=== PATIENT | female | born 1965 | race Caucasian/White ===

== ENCOUNTER 2018-05-24 11:55 | Emergency (ER) | payer BC ==
[2018-05-24 12:28] VITALS: BP 134/62
--- NOTE | 2018-05-24 12:48 | ED ---
Throat Pain/Nasal Congestion - HPI Summary HPI Summary: 53 yr old female with the complaint of sinus pressure, post nasal drip, and cough. Onset about a month ago. She has had sinus infections in the past. Her pressure is in the maxillary sinus area. - History of Current Complaint Chief Complaint: UCGeneralIllness Time Seen by Provider: 05/24/18 12:16 - Allergies/Home Medications Allergies/Adverse Reactions: Allergies Allergy/AdvReac Type Severity Reaction Status Date / Time Penicillins Allergy Rash Verified 05/24/18 12:23 Home Medications: Home Medications Ferrous Sulfate [Iron High-Potency] 1 tab PO DAILY 05/24/18 [History Confirmed 05/24/18] Fexofenadine/Pseudoephedrine [Yudy-D 24 Hour Tablet] 1 each PO DAILY PRN 02/03 [History Confirmed 05/24/18] Levothyroxine TAB* [Synthroid TAB*] 75 mcg PO 0800 05/24/18 [History Confirmed 05/24/18] Mometasone/Formoter 100/5 MDI* [Dulera 100/5 MDI*] 2 puff INH DAILY 05/24/18 [ History Confirmed 05/24/18] PMH/Surg Hx/FS Hx/Imm Hx Endocrine/Hematology History: Reports: Hx Thyroid Disease - hypothyroidism Respiratory History: Reports: Hx Asthma - allergy induced - Surgical History Surgery Procedure, Year, and Place: C section Infectious Disease History: No Infectious Disease History: Denies: Traveled Outside the [place] in Last 30 Days - Family History Known Family History: Positive: None - Social History Occupation: Employed Full-time Alcohol Use: Rare Substance Use Type: Reports: None Smoking Status (MU): Never Smoked Tobacco Review of Systems Constitutional: Negative Positive: Nasal Discharge Positive: Cough All Other Systems Reviewed And Are Negative: Yes Physical Exam Triage Information Reviewed: Yes Vital Signs On Initial Exam: Initial Vitals Temp Pulse Resp BP Pulse Ox 98.4 F 70 15 134/62 100 05/24/18 12:17 05/24/18 12:17 05/24/18 12:17 05/24/18 12:17 05/24/18 12:17 Vital Signs Reviewed: Yes Appearance: Positive: Well-Appearing, No Pain Distress Skin: Positive: Warm, Skin Color Reflects Adequate Perfusion Head/Face: Positive: Normal Head/Face Inspection Eyes: Positive: EOMI ENT: Positive: Pharynx normal, TMs normal, Sinus tenderness Neck: Positive: Nontender Respiratory/Lung Sounds: Positive: Clear to Auscultation, Breath Sounds Present Cardiovascular: Positive: RRR. Negative: Murmur Abdomen Description: Positive: Nontender Musculoskeletal: Positive: Strength/ROM Intact Neurological: Positive: Sensory/Motor Intact, Alert, Oriented to Person Place, Time, CN Intact II-III Psychiatric: Positive: Normal - Tre Coma Scale Best Eye Response: 4 - Spontaneous Best Motor Response: 6 - Obeys Commands Best Verbal Response: 5 - Oriented Coma Scale Total: 15 Diagnostics - Vital Signs Vital Signs Temp Pulse Resp BP Pulse Ox 05/24/18 12:17 98.4 F 70 15 134/62 100 - Laboratory Lab Statement: Any lab studies that have been ordered have been reviewed, and results considered in the medical decision making process. EENT Course/Dx - Course Course Of Treatment: 53 yr old with sinusitis. Plan Rx with Biaxin. DC home. - Diagnoses Provider Diagnoses: Sinusitis Discharge - Sign-Out/Discharge Documenting (check all that apply): Patient Departure All imaging exams completed and their final reports reviewed: No Studies - Discharge Plan Condition: Good Disposition: HOME Prescriptions: Clarithromycin TAB* [Biaxin 500 MG TAB*] 500 mg PO BID #20 tab Patient Education Materials: Sinusitis (ED) Ref[place]: [facility] [place] [facility] [place]] - 4 Days No Primary Care Phys,NOPCP [Primary Care Provider] - - Billing Disposition and Condition Condition: GOOD Disposition: Home
== END 2018-05-24 12:50 | disposition home or self-care (01) ==
LOC: UCCORT 11:55
DX: J32.9 Chronic sinusitis, unspecified (principal); Z88.0 Allergy status to penicillin; E03.9 Hypothyroidism, unspecified; J45.909 Unspecified asthma, uncomplicated
CPT/HCPCS: 99202; G0463